=== PATIENT | female | born 1940 | race Caucasian/White ===

== ENCOUNTER → 2020-08-17 | Outpatient (CLI) | payer MEDICARE ==
[~2020-08-17] MED LIST: BAMLANIVIMAB (EUA) 700 MG in NS 250ML 180 ML IV ONE
[2020-08-17 13:23] VITALS: BP 107/68
[2020-08-17 13:45] VITALS: BP 99/62
[2020-08-17 14:35] VITALS: BP 111/62
[2020-08-17 15:30] VITALS: BP 113/64
== END | disposition home or self-care (01) ==
LOC: OPTX 13:12
PROVIDERS: ATTEND Physician Assistant
DX: U07.1 COVID-19 (principal)
CPT/HCPCS: J7050; M0239; Q0239; 96365; 96366